=== PATIENT | female | born 1965 | race Caucasian/White ===

== ENCOUNTER 2020-11-16 14:30 | Emergency (ER) | payer BC, SELFPAY ==
[2020-11-16 14:41] VITALS: BP 126/78; PULSE 85; RESP 16; TEMP 37.2; O2SAT 99
--- NOTE | 2020-11-16 14:41 | ED.URI ---
HPI - URI/Sore Throat General Chief Complaint: Upper Respiratory Infection Stated Complaint: cough/chest tightness Source: patient and RN notes reviewed Mode of arrival: ambulatory Limitations: no limitations History of Present Illness HPI Narrative: 55-year-old female with history of asthma presents with concern for continuing cough, chest tightness with deep breathing after recovering from Covid. Reports she is 15 days from the start of her symptoms, reports symptoms had been mild. Denies current fever, shortness of breath, loss of sense of taste or smell, body aches, chills, sweats. Reports she has been taking vitamin supplements, denies any other chin-dbs-[id number] medications. Denies any doing to use her albuterol inhaler. MD elicited complaint: cough Related Data Home Medications Medication Instructions Recorded Confirmed aspirin 81 mg tablet,delayed 81 mg PO DAILY 12/20/19 11/16/20 release cholecalciferol (vitamin D3) 50 2,000 unit PO DAILY 12/20/19 11/16/20 mcg (2,000 unit) capsule clonidine HCl 0.1 mg tablet 0.1 mg PO WEEKLY tablet 12/20/19 11/16/20 Allergies Allergy/AdvReac Type Severity Reaction Status Date / Time codeine AdvReac Intermediate BECOMES Verified 11/16/20 14:47 VERY ANXIOUS ???/ANESTHETIC PRODUCT Allergy Severe PAROXYSMAL Uncoded 11/29/08 15:46 AFIB--CONVERTED ON OWN Review of Systems Review of Systems: Narrative: CONSTITUTIONAL: Denies malaise, chills, sweats, or fever. EYES: Denies visual changes, redness, or discharge. ENT: Denies rhinorrhea, congestion, sinus pain, otalgia and sore throat. CARDIOVASCULAR: Denies chest pain, palpitations, or edema. RESPIRATORY: Reports cough, chest tightness with deep breathing. Denies dyspnea. GASTROINTESTINAL: Denies abdominal pain, nausea, vomiting, diarrhea SKIN: Denies rash or itching. MUSCULOSKELETAL: Denies myalgia. NEUROLOGIC: Denies headache. All systems reviewed & are unremarkable except as noted in HPI and below [facility] Family History Family History (Updated 03/17/18 @ 07:55 by DOCTOR UNKNOWN) Mother Hypertension Family history of atrial fibrillation, Onset Age: 71 Father Family history of malignant neoplasm of testis Other Family history of malignant melanoma Social History Social History Smoking status: Never smoker Alcohol intake: current Comments At time of signature, agree with nursing past medical, surgical, social and family history. There is no relevant family history pertinent to the presenting complaint Exam Narrative: Exam Narrative: GENERAL: Well-appearing, well-nourished, and in no acute distress. HEAD: Normocephalic EYES: PERRLA, conjunctivae clear ENT: Nares clear, turbinates erythematous, clear discharge. Mucous membranes moist. TM pearly agrawal with sharp light reflex bilaterally; no tragal tenderness. Oropharynx not erythematous without lesions. Tonsils not enlarged and without exudate, no drooling, no hoarseness, no trismus, uvula midline. NECK: Supple. No lymphadenopathy CHEST: Clear to auscultation, breath sounds equal. Very mild left inspiratory wheeze, rhonchi, rales, or stridor. No respiratory distress, speaks in full sentences. Aeration good HEART: Regular rate and rhythm. No murmur heard. SKIN: Warm, dry, no rash. NEURO: Alert and oriented x3. PSYCH: Normal mood and affect Course Course Emergency Course: Patient is aware of diagnosis, understands and agrees to treatment plan. Anticipatory guidance given. Patient agrees to follow-up as directed and is aware of reasons to seek care at the emergency department. Portions of this record may have been created with voice recognition software Vital Signs Vital signs: Vital Signs Temperature 98.9 F 11/16/20 14:41 Pulse Rate 85 11/16/20 14:41 Respiratory Rate 16 11/16/20 14:41 Blood Pressure 126/78 11/16/20 14:41 Pulse Oximetry 99 11/16/20 14:41 Temperature 98.9 F 11/16/20 14:41 Pulse Rate 85 01
== END 2020-11-16 15:01 | disposition home or self-care (01) ==
PROVIDERS: Emergency Provider Nurse Practitioner; PCP Family Medicine
DX: J40 Bronchitis, not specified as acute or chronic (principal); Z79.82 Long term (current) use of aspirin
CPT/HCPCS: 99213; G0463

== ENCOUNTER 2021-01-12 01:02 | Day surgery (SDC) | payer BC, SELFPAY ==
[2021-01-03 14:30] VITALS: BMI 22.9
[2021-01-12 07:39] VITALS: BMI 23.7
--- NOTE | 2021-01-12 07:48 | PM.HPGS ---
History of Present Illness History of Present Illness Consent: Risks, benefits, and alternatives have been discussed and questions answered. Patient agrees to proceed with procedure. Chief complaint: neoplasm screening Narrative: Sally Bellamy is a 55 year old female Referred for colon cancer screening Review of Systems Review of Systems: All systems reviewed & are unremarkable except as noted in HPI and below PMFSH Family History Family History (Updated 03/17/18 @ 07:55 by DOCTOR UNKNOWN) Mother Hypertension Family history of atrial fibrillation, Onset Age: 71 Father Family history of malignant neoplasm of testis Other Family history of malignant melanoma Social History Social History Smoking status: Never smoker Alcohol intake: current Drinks per week: 1 Alcohol use details: WINE Substance use: never Substance use type: does not use Living arrangements: with family Spiritual care concerns: No Meds Home Medications and Allergies Home Medications Medication Instructions Recorded Confirmed Type aspirin 81 mg tablet,delayed 81 mg PO HS 12/20/19 01/12/21 History release cholecalciferol (vitamin D3) 50 2,000 unit PO DAILY 12/20/19 01/12/21 History mcg (2,000 unit) capsule fluticasone propion-salmeterol 1 inhalation INHALATION DAILY 01/03/21 01/12/21 History [Advair Diskus] levothyroxine 50 mcg PO QAM 01/03/21 01/12/21 History loratadine [Claritin] 10 mg PO DAILY 01/03/21 01/12/21 History nebivolol [Bystolic] 5 mg PO HS 01/03/21 01/12/21 History Allergies Allergy/AdvReac Type Severity Reaction Status Date / Time No Known Allergies Allergy Verified 01/12/21 07:32 Exam Resp: Auscultation: clear to auscultation bilaterally Cardio: Rate: regular rate Rhythm: regular rhythm GI: GI Palp: Yes Soft to palpation and No Tenderness to palpation present (GI) Assessment and Plan Assessment and plan (1) Colon cancer screening: Code(s): Z12.11 - Encounter for screening for malignant neoplasm of colon Status: Acute Assessment and Plan: Colonoscopy with possible biopsy or polypectomy or cautery or injection of substances.
[2021-01-12] MEDS: LACTATED RINGERS 1,000 ML 150 ML IV CONT (07:50)
[2021-01-12 07:51] VITALS: BP 137/76; PULSE 58; RESP 18; TEMP 36.2; O2SAT 100
--- NOTE | 2021-01-12 08:15 | WPDANESEPPF ---
Anes - Initial Pre Proc Eval Procedure: Operation Date: 01/12/21 09:00 Proposed Procedures p Screening Colonoscopy - Laron Escalona MD Date/Time: 01/12/21 08:15 Surgeon: Laron Escalona MD Pre Op Diagnosis: neoplasm screening Patient Data Age: 55 Gender: F Height: 5 ft 10 in Weight: 75 kg Last Vital Signs Temp 36.2 C L 01/12/21 07:51 Pulse 58 L 01/12/21 07:51 Resp 18 01/12/21 07:51 BP 137/76 01/12/21 07:51 Pulse Ox 100 01/12/21 07:51 Allergies Allergy/AdvReac Type Severity Reaction Status Date / Time No Known Allergies Allergy Verified 01/12/21 07:32 Home Medications Medication Instructions Recorded Confirmed Type aspirin 81 mg tablet,delayed 81 mg PO HS 12/20/19 01/12/21 History release cholecalciferol (vitamin D3) 50 2,000 unit PO DAILY 12/20/19 01/12/21 History mcg (2,000 unit) capsule fluticasone propion-salmeterol 1 inhalation INHALATION DAILY 01/03/21 01/12/21 History [Advair Diskus] levothyroxine 50 mcg PO QAM 01/03/21 01/12/21 History loratadine [Claritin] 10 mg PO DAILY 01/03/21 01/12/21 History nebivolol [Bystolic] 5 mg PO HS 01/03/21 01/12/21 History Patient hx anesthesia problems: post op nausea/vomiting Family hx anesthesia problems: none PMFSH Past Medical History Medical History Asthma Essential (primary) hypertension Hypothyroidism, unspecified Mixed hyperlipidemia Family History Family History Mother Hypertension Family history of atrial fibrillation, Onset Age: 71 Father Family history of malignant neoplasm of testis Other Family history of malignant melanoma Social History Social History Smoking status: Never smoker Alcohol intake: current Drinks per week: 1 Alcohol use details: WINE Substance use: never Substance use type: does not use Living arrangements: with family Spiritual care concerns: No Anes - Eval Final PreProcedure Day of Procedure 01/12/21 08:15 Patient weight: normal Heart: regular rate and rhythm Lungs: clear to auscultation Airway: Mallampati scale class II Neurological: alert and oriented ASA classification: II Emergent: no Anesthetic plan: proceed Anesthesia type and monitoring: general GIVS and standard monitoring Informed Consent: The patient's anesthetic plan and its attendant risks and benefits were discussed with the patient/family/POA. Questions were solicited and answers provided to the satisfaction of the patient/family/POA.
[2021-01-12 08:59] VITALS: BP 106/66; PULSE 59; RESP 18; O2SAT 99
[2021-01-12 09:09] VITALS: BP 108/65; PULSE 55; RESP 17; O2SAT 100
[2021-01-12 09:19] VITALS: BP 129/71; PULSE 54; RESP 17; O2SAT 100
== END 2021-01-12 09:28 | disposition home or self-care (01) ==
PROVIDERS: PCP Family Medicine; Visit Provider Internal Medicine Gastroenterology
PROC: 0DJD8ZZ Inspection of Lower Intestinal Tract, Via Natural or Artificial Opening Endoscopic (ICD-10-PCS; CPT 45378; principal; 2021-01-12 09:00)
DX: Z12.11 Encounter for screening for malignant neoplasm of colon (principal); Z86.010 Personal history of colon polyps
CPT/HCPCS: 45378; J2001; J2704; J7120

== ENCOUNTER → 2021-08-23 11:50 | Outpatient (CLI) | payer BC, SELFPAY ==
--- NOTE | ~2021-08-23 | XR_ITS ---
EXAMINATION:XR cervical spine 4-5V DATE: 08/23/2021 12:06 INDICATION: Neck pain TECHNIQUE: AP, lateral, lateral swimmers and odontoid views of the cervical spine are provided. COMPARISON: None FINDINGS: There are 2 mm of anterolisthesis of C3 on C4. The odontoid is intact. No fracture is ident ified. The vertebral body heights are maintained. There is moderate loss of intervertebral disc space height at C5-6 and mild loss of disc space height at C6-7. Small degenerative osteophytes project fr om the anterior endplates of multiple vertebral bodies. There is moderate to severe facet osteoarthri tis on the left in the mid cervical spine. There is mild uncovertebral joint osteoarthritis at C5-6. Prevertebral soft tissues are normal. IMPRESSION: 1. Moderate cervical spondylosis without acute findings. Reviewed, dictated and finalized at location A.
== END ==
PROVIDERS: PCP Physician Assistant Medical; Visit Provider Physician Assistant Medical
DX: M47.812 Spondylosis without myelopathy or radiculopathy, cervical region (principal)
CPT/HCPCS: 72050

== ENCOUNTER 2021-10-25 14:15 | Outpatient (RCR) | payer BC, SELFPAY ==
--- NOTE | 2021-09-05 12:46 | PTOPEVAL ---
Thank you for referring Sally Bellamy to [facility].? The patient is scheduled to be seen for therapy 2x/week for 6 weeks. Please review, sign, date and return this plan of care TREE. I agree with and certify that the following plan of care is medically necessary. Referring Physician Date Attending Provider: Dontrell Villalpando, GREYS[place] Diagnosis cervical radiculopathy Onset 2018 Additional Evaluation Detail She has started on steroid and 600 mg ibuprofen and pain patch for her pain. Subjective Information She was received massages Query Text:As Reported By Patient/ every 2 wks for 2 yrs to Family manage her neck pain, but no therapy services. 1 Month ago her right side of neck had increased pain. She c /o numbness, tingling, pinching and tightness of neck region. She reports the computer position makes a difference on her neck pain with reading. She has increased pain with looking update. She is limited with neck motion for driving and turning when seated position. Denies performing any HEP for neck. Fitness program of walking and light resistance training. She has increased pain with sitting. Diagnostic Tests X-Rays For This Problem Yes: Moderate cervical spondylosis Pain Assessment Self Report Pain Assessment Right Neck Reported Pain Level 4 Pain Description Burning,Numbness,Radiating, Tightness,Tingling Pain Frequency Continuous Lowest Pain Intensity 3 Greatest Pain Intensity 7 Pain Aggravating Factors Exercise/Activity Cervical and Lumbar ROM Cervical ROM Cervical Flexion (0-60) 55:Active in Degrees Cervical Extension (0-70) 55:Active in Degrees Cervical Lateral Flexion Right (0-50) 20:Active in Degrees Cervical Lateral Flexion Left (0-50) 15:Active in Degrees Cervical Rotation Right (0-90) 43Active in Degrees Cervical Rotation Left (0-90) 48:Active in Degrees Cervical ROM Comments dizziness with ext pain and tightness noted with neck motions Upper Extremity Range of Motion Genera
--- NOTE | 2021-10-05 15:56 | PTOPEVAL ---
Physical therapy progress note Thank you for referring Sally Bellamy to [facility].? See summary below for Sally's progress with therapy. The patient is scheduled to be seen for therapy? 2 x/week for 3 weeks. Please review, sign, date and return this plan of care TREE. I agree with and certify that the following plan of care is medically necessary. Referring Physician Date Attending Provider: Dontrell Villalpando PA-C Problem Diagnosis cervical radiculopathy Onset 2018 Additional Evaluation Detail She has started on steroid and 600 mg ibuprofen and pain patch for her pain. Subjective Information She reports improved neck Query Text:As Reported By Patient/ motion and pain as a result of Family therapy. She is having difficulty with scapular strengthening ex. Denied any numbness, tingling of neck or UE region. Cont to have pinching of neck region. She she is able to turn her head better with driving. She is more aware of her UE position with daily task and seated position. Pain Assessment Self Report Pain Assessment Right Neck Reported Pain Level 0 Pain Description Burning,Pinching,Tightness Pain Frequency Intermittent Greatest Pain Intensity 4 Cervical and Lumbar ROM Cervical ROM Cervical Flexion (0-60) 55:Active in Degrees Cervical Extension (0-70) 70:Active in Degrees Cervical Lateral Flexion Right (0-50) 18Active in Degrees Cervical Lateral Flexion Left (0-50) 25:Active in Degrees Cervical Rotation Right (0-90) 55:Active in Degrees Cervical Rotation Left (0-90) 55:Active in Degrees Cervical ROM Comments dizziness with ext pain and tightness noted with neck motions Upper Extremity Muscle Strength Testing General Upper Extremity Strength Gross Upper Extremity Strength Comments lary middle trap 3/5 with proper middle/lower trap stability Palpation Assessment Palpation Palpation moderate tightness with tenderness of lary SCM, lary scalene posterior, lary upper/ middle trap, right cerivcal paraspinals and suboccipital muscles > left, no tenderness or tightness of right serratus post sup. PT Clinical Fields
--- NOTE | 2021-10-25 15:33 | PTOPEVAL ---
Physical Therapy Discharge Summary Thank you for referring Sally Bellamy to [facility].? Sally has attended 12 therapy visits to address her neck limitations. She demonstrates improved pain, improved ROM and strength. She performs her HEP indep. She has reached maximal potential with skilled therapy services at this time. Will DC skilled PT services at this time. Please review, sign, date and return this discharge summary TREE. I agree with and certify that the following plan of care is medically necessary. Referring Physician Date Attending Provider: Dontrell Villalpando PA-C Diagnosis cervical radiculopathy Onset 2018 Subjective Information She is no longer using the Query Text:As Reported By Patient/ pain patch or medication for Family her pain. She reports improved neck motion and pain as a result of therapy. She feels her work increases her symptoms. She has no pain on the weekend. She did feel the tape helped her be more aware of her posture and movement. She is more aware of her shoulder/scap position with activities and exercises. Feels the changes in her exercises have helped improved her movement and tolerance. Pain Assessment Right Neck Reported Pain Level 1 Lowest Pain Intensity 1 Greatest Pain Intensity 2 Cervical and Lumbar ROM Cervical ROM Cervical Flexion (0-60) 55:Active in Degrees Cervical Extension (0-70) 70:Active in Degrees Cervical Lateral Flexion Right (0-50) 32:Active in Degrees Cervical Lateral Flexion Left (0-50) 30:Active in Degrees Cervical Rotation Right (0-90) 58:Active in Degrees Cervical Rotation Left (0-90) 58:Active in Degrees Cervical ROM Comments no pain with neck motion, but tightness Upper Extremity Muscle Strength Testing General Upper Extremity Strength Gross Upper Extremity Strength Comments lary middle trap 3+/5 with proper middle/lower trap stability PT Clinical Summary Pt referred to therapy due to increased neck pain and symptoms on right side. She has a history of neck muscle tightness for 2 yrs. She has attended 12 therapy visits from 09/05/21 to 10/25/21. As result of skilled therapy services s
== END 2021-10-29 11:20 | disposition home or self-care (01) ==
LOC: ANHPT 14:15
PROVIDERS: PCP Physician Assistant Medical; Visit Provider Physician Assistant Medical
DX: M54.12 Radiculopathy, cervical region (principal)
CPT/HCPCS: 20560; 97014; 97110; 97140; 97162; G0283

== ENCOUNTER 2023-05-07 15:30 | Outpatient (RCR) | payer BC, SELFPAY ==
--- NOTE | 2023-04-07 16:38 | OPREHPOC ---
Outpatient Therapy Plan of Care This is a Multidisciplinary Plan of Care that may contain components documented by all disciplines (PT, OT, and ST.) PT Problem 1 PT Problem #1 Knowledge Deficit PT Goal 1 Goal Pt to be IND with issued HEP. Target Visit 8 PT Problem 2 PT Problem #2 Pain PT Goal 1 Goal Pt to report hip pain no greater than 3/10 in the last week. Target Visit 8 PT Goal 2 Goal Pt to report being able to jog for 5 mins without an increase in hip pain Target Visit 8 Progress Met PT Problem 3 PT Problem #3 Impaired Range of Motion PT Goal 1 Goal Pt to report no increase in pain with passive hip ROM Target Visit 8 Progress Met PT Goal 2 Goal Pt to demonstrate 20 deg of hip int. rot. and 40 deg of hip ext. rot Target Visit 8 PT Problem 4 PT Problem #4 Impaired Strength PT Goal 1 Goal Pt to demonstrate L hip strength equal to R hip strength Target Visit 8 PT Goal 2 Goal Pt to be able to lift and carry 30lb without an increase in symptoms Target Visit 8 Progress Met
--- NOTE | 2023-04-07 16:38 | PTOPEVAL1 ---
Assessment and note entered by Azra Corley, PT, DPT Evaluation Information Assessment Status Evaluation Diagnosis L thigh/hip pain Onset 1 year Subjective Information Pt report hip pain for the last year that is a dull ache. Pt states any time she does sit ups her hip would pop. She states it got to where her hip would pop during position changes, sit to stand, getting in and out of the car, or striding for too long. She used to run fairly often but has not done this for the last year or so. She states she feels like she has lost a lot of mobility recently , she is unsure if her hip is the cause or not. She will get a sharp, catching pain that is really quick. Reported Pain Level Pain Score 1: Self Report Assessment PT Clinical Summary Sally presents to therapy today for her initial evaluation with a diagnosis of L groin pain. Today she demonstrates significantly decreased L hip passive ROM in all directions that is limited by pain and a hard firm end feel. She demonstrates good pain in her L hip but it is decreased compared to her R hip. She ambulates with gait deviations including decreased hip extension on the L and increased anterior pelvic motion on the R. Skilled physical therapy services are indicated to address the deficits noted above, to manage pain, and to return to PLOF. Plan of Care Interventions Electrical Stimulation,Gait Training,Hot Pack/Cold Pack,Manual Therapy,Neuro Re-education,Patient/ Caregiver Educati,Therapeutic Activities, Therapeutic Exercise PT Services Indicated Yes Treatment Frequency and 2x/wk for 4 wks Duration These treatments will address the objective and functional deficits as defined above. The patient will be advanced safely and appropriately in order for the patient to progress towards his/her prior level of function. Additional exercises will be introduced and as well as a comprehensive home exercise program upon discharge, if needed, ?to ensure carryover of functional gains achieved in the clinic. This treatment plan has been reviewed and agreement upon by the patient.
--- NOTE | 2023-04-22 16:34 | PCPTNOTE ---
On 04/22/23, the student, Hiowt Balderas, provided care and completed [facility] documentation on this patient. I have reviewed the student's documentation and agree with the findings.
--- NOTE | 2023-05-07 16:31 | PTOPDC ---
Assessment and note entered by Azra Corley, PT, DPT Evaluation Information Assessment Status Discharge Diagnosis L thigh/hip pain Onset 1 year Subjective Information Pt reports she does not thinks the exercises are working for what her problem is. Reported Pain Level Pain Score 2: Self Report Assessment PT Clinical Summary Sally presents to therapy today for her progress report following 7 treatments of skilled therapy to treat her diagnosis of L groin pain. Today she demonstrates minimal improvements in her hip rotation ROM, minimal improvements in her strength , and no improvements in her pain reports. D/t poor therapy progress despite excellent compliance with her HEP she will be discharged from skilled therapy services at this time with instructions to follow up with her referring provider and possible ortho.
== END 2023-05-08 08:17 | disposition home or self-care (01) ==
LOC: ANHGOSHPT 15:30
PROVIDERS: PCP Family Medicine; Visit Provider Family Medicine
DX: S76.212D Strain of adductor muscle, fascia and tendon of left thigh, subsequent encounter (principal)
CPT/HCPCS: 97014; 97110; 97112; 97140; 97161; 97530; G0283

== ENCOUNTER 2023-05-26 06:39 | Outpatient (CLI) | payer BC, SELFPAY ==
--- NOTE | ~2023-05-26 | XR_ITS ---
XR hip LT 2V w AP pelvis 05/26/2023 07:03 Indication: Left hip pain Procedure: 3 views left hip including AP pelvis Comparison: No prior studies for comparison. Findings: There is moderate osteoarthritis of the hips, left greater than right. Pelvic rings are int act. No significant soft tissue abnormality. No foreign bodies. No acute fracture or traumatic malali gnment. Impression: 1: Moderate osteoarthritis of the hips. Reviewed, dictated and finalized at location A. Impression: 1: Moderate osteoarthritis of the hips.
== END 2023-05-26 06:40 | disposition home or self-care (01) ==
LOC: ANHIMG 06:42
PROVIDERS: PCP Family Medicine; Visit Provider Family Medicine
DX: M16.0 Bilateral primary osteoarthritis of hip (principal)
CPT/HCPCS: 73502

== ENCOUNTER 2023-12-07 17:06 | Emergency (ER) | payer BC, SELFPAY ==
--- NOTE | ~2023-12-07 | XR_ITS ---
EXAMINATION: XR chest 2V Exam Date/Time: 12/07/2023 18:20 COMPRESSOR OPERATOR PORTABLE HISTORY: SOB, IRREGULAR HEART RATE Comparison: 05/31/2016; CT chest 09/09/2017. RESULT: Lines, tubes, and devices: None. Lungs and pleura: Clear. Biapical pleural scarring. Cardiomediastinal silhouette: Stable. Granulomatous calcifications. Other: No acute osseous or upper abdominal finding. IMPRESSION: No acute cardiopulmonary process. Reviewed, dictated and finalized at location K. RESSOR OPERATOR PORTABLE
--- NOTE | 2023-12-07 17:10 | ECG_ITS ---
Measurements Intervals [place] Rate: 103 P: VT: 0 QRS: 66 QRSD: 82 T: 47 QT: 340 QTc: 447 Interpretive Statements ATRIAL FIBRILLATION WITH RAPID VENTRICULAR RESPONSE NONSPECIFIC ST SEGMENT ABNORMALITY ABNORMAL ECG NO PREVIOUS ECG AVAILABLE FOR COMPARISON Electronically Signed On 12-08-2023 7:42:39 TRANSISTOR TESTER by Chandler Childers M.D.
[2023-12-07 17:13] VITALS: BP 148/96; PULSE 105; RESP 18; TEMP 36.5; O2SAT 100
[2023-12-07 17:55] LABS: Basophils Percent Auto 0.6 % (0.2-1.2); Eosinophils Absolute Auto 0.1 K/mm3 (0-0.3); Eosinophils Percent Auto 2.1 % (0-4.4); Hematocrit 41.2 % (37.0-47.0); Hemoglobin 13.3 g/dL (12.0-15.0); Immature Granulocyte Absolute 0.02 K/mm3 (0.00-0.031); Immature Granulocyte Percent A 0.3 % (0-0.5); Lymphocytes Absolute Auto 2.23 K/mm3 (0.9-3.2); Lymphocytes Percent Auto 35.7 % (18.3-44.2); Mean Corpuscular HGB Conc 32.3 g/dl (32-36); Mean Corpuscular Volume 92.8 fl (80-100); Mean Platelet Volume 8.8 fl (7.4-10.4); Monocytes Absolute Auto 0.5 K/mm3 (0.1-0.6); Monocytes Percent Auto 8.5 % (2.6-8.5); Neutrophils Absolute Auto 3.3 K/mm3 (1.3-6.7); Neutrophils Percent Auto 52.8 % (45.5-73.1); Platelet Count Result 318 k/mm3 (150-375); Red Blood Count 4.44 M/mm3 (4.2-5.4); Red Cell Distribution Width 12.8 % (11.5-14.5); White Blood Count 6.3 K/mm3 (4.5-10.0)
[2023-12-07 18:03] LABS: Alanine Aminotransferase 24 U/L (6-35); Albumin Level 4.1 g/dL (3.5-5.1); Alkaline Phosphatase 62 U/L (38-126); Anion Gap 6 mmol/L (8-16); Aspartate Amino Transferase 31 U/L (14-36); Bilirubin,Total 0.5 mg/dL (0.2-1.3); Blood Urea Nitrogen 20 mg/dL (7-17); Carbon Dioxide 28 mmol/L (22-30); Chloride 106 mmol/L (98-107); Estimated CRCL calculation 93 ml/min; Estimated Glomerular Filt Rate > 60; Glucose 112 mg/dL (65-110); Lipase 121 U/L (23-300); Potassium 4.1 mmol/L (3.4-5.0); Sodium 140 mmol/L (137-145)
[2023-12-07 18:06] LABS: Partial Thromboplastin Time 29.6 SECONDS (22.3-36.8)
[2023-12-07 18:15] LABS: Troponin I < 0.012 ng/mL (0.000-0.034)
[2023-12-07 20:39] VITALS: PULSE 106
--- NOTE | 2023-12-07 20:39 | ED.CHESTPAIN ---
HPI - Chest Pain General Chief Complaint: Chest Pain Stated Complaint: irregular heartbeat Time Seen by Provider: 12/07/23 20:32 History of Present Illness HPI narrative: Patient is a 58-year-old female with history of hypothyroidism, HTN here with palpitations. patient notes that she has had intermittent episodes over the last couple of days, today's episode began around 4:00 pm. She notes that she feels a fluttering sensation in the left side of her chest. No associated shortness of breath, chest pain, lightheadedness. She notes that her heart rate on her watch went up to 115, typically her resting heart rate is in the 50s. This prompted her to tell her about the symptoms she has been having and he recommended she come into the emergency department for evaluation. She does note that after a procedure several years ago she did have an arrhythmia when she was coming out of anesthesia which resolved with medication then and never really was noted to recur. She has never seen a ginseng farmer. No history of CAD or stroke. No recent illnesses. No lower extremity swelling, no prior history of PE or DVT, no recent travel. No blood thinner use. Related Data Home Medications Medication Instructions Recorded Confirmed aspirin 81 mg tablet,delayed 81 mg PO HS 12/20/19 06/09/23 release (Adult Aspirin Regimen) cholecalciferol (vitamin D3) 50 2,000 unit PO DAILY 12/20/19 06/09/23 mcg (2,000 unit) capsule loratadine 10 mg tablet (Claritin) 10 mg PO DAILY 01/03/21 06/09/23 ascorbic acid (vitamin C) 500 mg mg PO 06/09/23 06/09/23 capsule magnesium glycinate 100 mg tablet 400 mg PO DAILY 06/09/23 06/09/23 omega-3 fatty acids 500 mg capsule 500 mg PO DAILY 06/09/23 06/09/23 quercetin 500 mg capsule mg PO 06/09/23 06/09/23 vitamin B complex (B 1 tablet PO DAILY 06/09/23 06/09/23 Complex-Vitamin B12 tablet) zinc gluconate 50 mg tablet 50 mg PO BID 06/09/23 06/09/23 Allergies Allergy/AdvReac Type Severity Reaction Status Date / Time codeine AdvReac Unknown feels Verified 12/07/23 20:44 jittery COUNT INCLUDES THE [facility] Past Medical History Medical History Amaurosis fugax Asthma 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 Essential (primary) hypertension Hypothyroidism, unspecified Mixed hyperlipidemia Normal colonoscopy 3.10.23/ hx colon polyps/ repeat in 5 years Thrombosed external hemorrhoid Umbilical hernia with obstruction Surgical History Surgical History History of hysterectomy Family History Family History Mother Hypertension Family history of atrial fibrillation, Onset Age: 71 Father Family history of malignant neoplasm of testis Other Family history of malignant melanoma Social History Social History Smoking status: Never smoker Alcohol intake: current Drinks per week: 1 Alcohol use details: WINE Substance use: never Substance use type: does not use Lack of Transportation: No Lack of Food: Never True Current Housing: I Have Housing Concerned About Future Housing: No Difficulty Paying Gas/Electric Bills: No Difficulty Paying for Meds: No Currently Unemployed: No Education: Master's Degree or Higher Difficulty w/ Childcare or Family Care: No Living arrangements: with family Occupation/Education: occupation 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 Course Course Emergency Course: Chart review performed. Patient here for irregular heart beat. She has been checking it at home and has seen heart rate up to 115 at home. No chest pain or shortness of breath. Triage vitals show HTN, mild tachycardia. Chest pain protocol reviewed. CBC within normal limits. CMP within normal limits. Initia
[2023-12-07 20:46] VITALS: BP 123/91; PULSE 111; RESP 20; O2SAT 100
[2023-12-07 21:02] LABS: Troponin I < 0.012 ng/mL (0.000-0.034)
[2023-12-07 21:04] VITALS: PULSE 105
[2023-12-07] MEDS: METOPROLOL TARTRATE INJ 5 MG/5 ML VIAL IV PUSH (21:04)
[2023-12-07 21:15] LABS: Magnesium 2.1 mg/dL (1.6-2.3)
[2023-12-07 22:38] VITALS: PULSE 89
[2023-12-07] MEDS: APIXABAN 5 MG TABLET PO (22:38)
[2023-12-07] MEDS: METOPROLOL SUCCINATE EXT REL 25 MG TABCR PO (22:38)
[2023-12-07 22:46] VITALS: BP 131/84; PULSE 88; RESP 13; O2SAT 99
== END 2023-12-07 22:46 | disposition home or self-care (01) ==
PROVIDERS: Emergency Medicine; Emergency Provider Student in an Organized Health Care Education/Training Program; PCP Family Medicine
DX: I48.91 Unspecified atrial fibrillation (principal); I10 Essential (primary) hypertension; E03.9 Hypothyroidism, unspecified; J45.909 Unspecified asthma, uncomplicated; E78.2 Mixed hyperlipidemia; Z90.710 Acquired absence of both cervix and uterus; Z79.82 Long term (current) use of aspirin; R94.31 Abnormal electrocardiogram [ECG] [EKG]
CPT/HCPCS: 36415; 71046; 80053; 83690; 83735; 84443; 84484; 85025; 85610; 85730; 93005; 96374; 99284; A9270

== ENCOUNTER 2023-12-12 15:24 | Emergency (ER) | payer BC, SELFPAY ==
[2023-12-12] VITALS (13 sets, daily range): BP systolic 132–173; BP diastolic 67–80; PULSE 60–75; RESP 13–22; TEMP 36.7; O2SAT 97–100
--- NOTE | 2023-12-12 15:55 | ECG_ITS ---
Measurements Intervals [place] Rate: 61 P: 62 VT: 168 QRS: 40 QRSD: 93 T: 55 QT: 419 QTc: 423 Interpretive Statements SINUS RHYTHM POSSIBLE LEFT ATRIAL ENLARGEMENT [-0.1mV P WAVE IN V1/V2] POSSIBLE RIGHT VENTRICULAR CONDUCTION DELAY [RSR (QR) IN V1/V2] ABNORMAL ECG COMPARED TO ECG 12/07/2023 17:12:33 SINUS RHYTHM NOW PRESENT Electronically Signed On 12-13-2023 8:00:40 ELECTRICAL APPLIANCE SERVICER by Rafat Santizo M.D.
[2023-12-12 16:12] LABS: Basophils Percent Auto 0.7 % (0.2-1.2); Eosinophils Absolute Auto 0.1 K/mm3 (0-0.3); Eosinophils Percent Auto 1.1 % (0-4.4); Hemoglobin 13.9 g/dL (12.0-15.0); Immature Granulocyte Absolute 0.01 K/mm3 (0.00-0.031); Immature Granulocyte Percent A 0.2 % (0-0.5); Lymphocytes Absolute Auto 1.35 K/mm3 (0.9-3.2); Lymphocytes Percent Auto 24.4 % (18.3-44.2); Mean Corpuscular HGB Conc 32.3 g/dl (32-36); Mean Corpuscular Hemoglobin 29.8 pg (26-34); Mean Corpuscular Volume 92.3 fl (80-100); Mean Platelet Volume 8.5 fl (7.4-10.4); Monocytes Absolute Auto 0.3 K/mm3 (0.1-0.6); Neutrophils Absolute Auto 3.8 K/mm3 (1.3-6.7); Neutrophils Percent Auto 67.6 % (45.5-73.1); Platelet Count Result 312 k/mm3 (150-375); Red Blood Count 4.66 M/mm3 (4.2-5.4); Red Cell Distribution Width 12.9 % (11.5-14.5); White Blood Count 5.5 K/mm3 (4.5-10.0)
[2023-12-12 16:21] LABS: Alanine Aminotransferase 30 U/L (6-35); Albumin Level 4.8 g/dL (3.5-5.1); Alkaline Phosphatase 67 U/L (38-126); Anion Gap 8 mmol/L (8-16); Aspartate Amino Transferase 37 U/L (14-36); Blood Urea Nitrogen 15 mg/dL (7-17); Calcium 9.8 mg/dL (8.4-10.2); Carbon Dioxide 28 mmol/L (22-30); Chloride 102 mmol/L (98-107); Estimated CRCL calculation 109 ml/min; Estimated Glomerular Filt Rate > 60; Glucose 113 mg/dL (65-110); Potassium 4.2 mmol/L (3.4-5.0); Sodium 138 mmol/L (137-145)
[2023-12-12 16:33] LABS: Troponin I < 0.012 ng/mL (0.000-0.034)
--- NOTE | 2023-12-12 18:51 | ECG_ITS ---
Measurements Intervals [place] Rate: 59 P: 64 NE: 169 QRS: 48 QRSD: 83 T: 56 QT: 432 QTc: 430 Interpretive Statements SINUS BRADYCARDIA OTHERWISE NORMAL ECG COMPARED TO ECG 12/12/2023 16:01:07 SINUS BRADYCARDIA NOW PRESENT Electronically Signed On 12-13-2023 8:02:44 LOCOMOTIVE OBSERVER by Rafat Santizo M.D.
--- NOTE | 2023-12-12 18:51 | ED.RECABL ---
HPI - Recheck/Abnormal Lab/Rx General Chief Complaint: Recheck/Abnormal Lab/Rx Stated Complaint: Elv BP Time Seen by Provider: 12/12/23 16:58 Source: patient Mode of arrival: ambulatory Limitations: no limitations History of Present Illness HPI narrative: Patient is a 58-year-old female who presents to the ED with report of hypertension. Patient reports she was seen in the ED here last Friday for new medication. She was discharged at that time, started on eliquis and metoprolol, which she reports compliance with. States today around 1:00 p.m. she began having a squeezing pain in her left upper arm. She checked her blood pressure at that time and noted to be slightly elevated at 140 systolic. She then checked her blood pressure several more times and noted to increase to 160 systolic. She then decided to come to the ED. States the symptoms have since resolved. No further pain, tightness, pressure currently. Denies difficulty breathing, denies abdominal pain, nausea, vomiting, dizziness, lightheadedness, headache, vision changes, BLE pain or swelling. Patient is scheduled to see Cardiology with [facility] within the next 2 weeks. Scheduled to receive ECHO next week as outpatient. Related Data Home Medications Medication Instructions Recorded Confirmed aspirin 81 mg tablet,delayed 81 mg PO HS 12/20/19 12/09/23 release (Adult Aspirin Regimen) cholecalciferol (vitamin D3) 50 2,000 unit PO DAILY 12/20/19 12/09/23 mcg (2,000 unit) capsule loratadine 10 mg tablet (Claritin) 10 mg PO DAILY 01/03/21 12/09/23 ascorbic acid (vitamin C) 500 mg mg PO 06/09/23 12/09/23 capsule magnesium glycinate 100 mg tablet 400 mg PO DAILY 06/09/23 12/09/23 omega-3 fatty acids 500 mg capsule 500 mg PO DAILY 06/09/23 12/09/23 quercetin 500 mg capsule mg PO 06/09/23 12/09/23 vitamin B complex (B 1 tablet PO DAILY 06/09/23 12/09/23 Complex-Vitamin B12 tablet) zinc gluconate 50 mg tablet 50 mg PO BID 06/09/23 12/09/23 Allergies Allergy/AdvReac Type Severity Reaction Status Date / Time codeine AdvReac Unknown feels Verified 12/09/23 12:55 jittery Review of Systems Review of Systems: CONSTITUTIONAL: Denies fever, chills, or sweats. ENT: Denies vision changes. CARDIOVASCULAR: See HPI. RESPIRATORY: Denies cough or dyspnea. GASTROINTESTINAL: Denies abdominal pain, nausea, vomiting MUSCULOSKELETAL: See HPI. NEUROLOGIC: Denies headache, dizziness, numbness, or weakness. 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 Essential (primary) hypertension Hypothyroidism, unspecified Mixed hyperlipidemia Normal colonoscopy 3/ hx colon polyps/ repeat in 5 years Thrombosed external hemorrhoid Umbilical hernia with obstruction Surgical History Surgical History History of hysterectomy Family History Family History Mother Hypertension Family history of atrial fibrillation, Onset Age: 71 Father Family history of malignant neoplasm of testis Other Family history of malignant melanoma Social History Social History Smoking status: Never smoker Alcohol intake: current Drinks per week: 1 Alcohol use details: WINE Substance use: never Substance use type: does not use Lack of Transportation: No Lack of Food: Never True Current Housing: I Have Housing Concerned About Future Housing: No Difficulty Paying Gas/Electric Bills: No Difficulty Paying for Meds: No Currently Unemployed: No Education: Master's Degree or Higher Difficulty w/ Childcare or Family Care: No Living arrangements: with [facility]
[2023-12-12 19:25] LABS: Magnesium 2.3 mg/dL (1.6-2.3)
[2023-12-12 19:38] LABS: Troponin I < 0.012 ng/mL (0.000-0.034)
== END 2023-12-12 20:47 | disposition home or self-care (01) ==
PROVIDERS: Emergency Medicine; Emergency Provider Physician Assistant; PCP Family Medicine
DX: M79.622 Pain in left upper arm (principal); I10 Essential (primary) hypertension; J45.909 Unspecified asthma, uncomplicated; E03.9 Hypothyroidism, unspecified; E78.2 Mixed hyperlipidemia; Z90.710 Acquired absence of both cervix and uterus; R94.31 Abnormal electrocardiogram [ECG] [EKG]; R00.1 Bradycardia, unspecified
CPT/HCPCS: 36415; 80053; 83735; 84484; 85025; 93005; 99284

== ENCOUNTER 2023-12-17 10:25 | Outpatient (CLI) | payer BC, SELFPAY ==
--- NOTE | 2023-12-17 10:30 | ECHO_ITS ---
Patient Info Name: Sally Bellamy Age: 58 years : 1965 Gender: Female Ht: 70 in Wt: 177 lbs BSA: 2.00 m2 HR: 71 bpm BP: 132 / 76 mmHg Heart Rhythm: Sinus Rhythm Technical Quality: Good Exam Date: 12/17/2023 11:09 AM Exam Location: Echo Lab Patient Status: Outpatient Admit Date: 12/17/2023 Staff Ordering Physician: Guanaco Macias PA-C Site Foreman: Attending Provider: Guanaco Macias PA-C Exam Type: CA echo doppler color flow Study Info Complete two-dimensional, color flow and Doppler transthoracic echocardiogram is performed. Summary 1. Complete two-dimensional, color flow and Doppler transthoracic echocardiogram is performed. 2. Left ventricular chamber dimension is normal. 3. Left ventricular systolic function is normal, estimated at 60-65%. 4. There is mildly increased left ventricular wall thickness. 5. The left ventricular diastolic function is normal. 6. There is mild pulmonic regurgitation. Left Ventricle Left ventricular chamber dimension is normal. Left ventricular systolic function is normal, estimated at 60-65%. There is mildly increased left ventricular wall thickness. The left ventricular diastolic function is normal. Right Ventricle Right ventricular chamber dimension is normal. Right ventricular systolic function is normal. Left Atria Left atrial chamber dimension is normal. Right Atria Right atrial chamber dimension is normal. Atrial Septum Intact interatrial septum visualized by color flow imaging. Aortic Valve The aortic valve is trileaflet. There is mild aortic valve sclerosis. There is no aortic valve stenosis. There is trace aortic valve regurgitation. Pulmonic Valve The pulmonic valve is normal. There is no pulmonic valve stenosis. There is mild pulmonic regurgitation. Mitral Valve The mitral valve has thickened leaflets. There is no mitral valve stenosis. There is trace mitral valve regurgitation. Tricuspid Valve The tricuspid valve leaflets are normal. There is no significant tricuspid valve stenosis. There is trace tricuspid valve regurgitation. Pericardium/Pleural The pericardium appears normal. There is no pericardial effusion. Inferior Vena Cava Normal inferior vena cava with <50% collapse upon inspiration consistent with elevated right atrial pressure, 10 mmHg. Aorta The aortic root size at the sinus of Valsalva is normal. Left Ventricular Outflow Tract Name Value Normal LVOT 2D LVOT Diameter 2.1 cm LVOT Doppler LVOT Peak Gradient 6 mmHg LVOT Mean Gradient 2 mmHg LVOT VTI 27 cm LVOT VTI/AV VTI Ratio 0.8 LVOT Stroke Volume 90 ml LVOT CO 5.4 l/min LVOT CI 2.7 l/min/m2 Pulmonic Valve Name Value Normal PV Doppler PV Peak Gradient 4 mmHg Chao
== END 2023-12-17 10:26 | disposition home or self-care (01) ==
PROVIDERS: PCP Family Medicine; Visit Provider Physician Assistant
DX: I51.7 Cardiomegaly (principal); I37.1 Nonrheumatic pulmonary valve insufficiency
CPT/HCPCS: 93306

== ENCOUNTER 2024-01-23 08:28 | Outpatient (CLI) | payer BC, SELFPAY ==
--- NOTE | 2024-02-04 12:33 | WPDHOMESLEEP ---
Sleep Study - Home Unattended Date of Study: 01/23/24 Ordering Provider: Shaina Fischer MD Interpreting Provider: Ceci Stewart DO Home Sleep Study Type: Watch PAT Height: 1.78 m Weight: 77.111 kg Body Mass Index: 24.3 Neck Circumference (inches): 13.25 [place]: 0 Reason for Sleep Study Evaluation for causes of atrial fibrillation Sleep History The patient is a 58-year-old female with asthma, hypertension, hypothyroidism, hyperlipidemia and atrial fibrillation that had a sleep study ordered by her primary care physician for evaluation of sleep apnea. The patient's sleep intake questionnaire packet was unavailable. 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 Essential (primary) hypertension Hypothyroidism, unspecified Left hip pain Mixed hyperlipidemia Normal colonoscopy 3.10.23/ hx colon polyps/ repeat in 5 years Strain of left groin Thrombosed external hemorrhoid Umbilical hernia with obstruction Surgical History Surgical History History of hysterectomy Family History Family History Mother Hypertension Family history of atrial fibrillation, Onset Age: 71 Father Family history of malignant neoplasm of testis Other Family history of malignant melanoma Social History Social History Smoking status: Never smoker Alcohol intake: current Drinks per week: 1 Alcohol use details: WINE Substance use: never Substance use type: does not use Lack of Transportation: No Lack of Food: Never True Current Housing: I Have Housing Concerned About Future Housing: No Difficulty Paying Gas/Electric Bills: No Difficulty Paying for Meds: No Currently Unemployed: No Education: Master's Degree or Higher Difficulty w/ Childcare or Family Care: No Living arrangements: with family Occupation/Education: occupation 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 Medications Home Medications Medication Instructions Recorded Confirmed Type cholecalciferol (vitamin D3) 50 2,000 unit PO DAILY 12/20/19 01/13/24 History mcg (2,000 unit) capsule loratadine 10 mg tablet (Claritin) 10 mg PO DAILY 01/03/21 01/13/24 History fluticasone 250 mcg-salmeterol 50 See Rx Instructions .Route 11/25/22 01/13/24 Rx mcg/dose blistr powdr for .COMPLEX #180 ea inhalation ([employer] Inhub) ascorbic acid (vitamin C) 500 mg mg PO 06/09/23 01/13/24 History capsule magnesium glycinate 100 mg tablet 400 mg PO DAILY 06/09/23 01/13/24 History omega-3 fatty acids 500 mg capsule 500 mg PO DAILY 06/09/23 01/13/24 History quercetin 500 mg capsule mg PO 06/09/23 01/13/24 History vitamin B complex (B 1 tablet PO DAILY 06/09/23 01/13/24 History Complex-Vitamin B12 tablet) zinc gluconate 50 mg tablet 50 mg PO BID 06/09/23 01/13/24 History apixaban 5 mg tablet 5 mg PO BID 30 days #60 tabs 12/10/23 01/13/24 Rx levothyroxine 50 mcg tablet 50 mcg PO DAILY #90 tabs 01/13/24 01/13/24 Rx lisinopril 20 mg tablet 20 mg PO DAILY #90 tabs 01/13/24 01/13/24 Rx metoprolol succinate 25 mg 25 mg PO DAILY #90 tabs 01/13/24 01/13/24 Rx tablet,extended release 24 hr Sleep Procedure The sleep study was completed using [employer] a technically adequate device with seven channels: peripheral arterial tone, actigraphy, body position, snore, respiratory movement, pulse oximetry, sleep staging, and heart rate. Prior to using the device, the patient received verbal and written instructions for its application and was provided with the help desk phone number for additional telephonic instruction with 24-hour availability of qualified personnel to answer questions.? The study was score
[2024-02-04 12:38] VITALS: BMI 24.3
== END 2024-01-26 07:30 | disposition home or self-care (01) ==
LOC: ANHCSM 08:29
PROVIDERS: PCP Family Medicine; Visit Provider Family Medicine
DX: G47.33 Obstructive sleep apnea (adult) (pediatric) (principal); I48.0 Paroxysmal atrial fibrillation; I10 Essential (primary) hypertension
CPT/HCPCS: 95800

== ENCOUNTER 2024-05-12 00:42 | Day surgery (SDC) | payer BC, SELFPAY ==
[2024-04-30 14:49] VITALS: BMI 23.0
--- NOTE | 2024-04-30 15:18 | PC.NURSE ---
Spoke with PATIENT regarding medications. Pt. verbalizes understanding that the last dose of Eliquis is to be taken on 05/08/2024 and the Endoscopist will instruct them when to restart after the procedure.
[2024-05-12 12:13] VITALS: BP 156/72; PULSE 56; RESP 17; TEMP 36.1; O2SAT 100; BMI 23.8
[2024-05-12] MEDS: LACTATED RINGERS 1,000 ML 150 ML IV CONT (12:24)
--- NOTE | 2024-05-12 12:58 | WPDANESEPPF ---
Anes - Initial Pre Proc Eval Procedure: Operation Date: 05/12/24 13:30 Proposed Procedures p Esophagogastroduodenoscopy - Juan Taveras MD Date/Time: 05/12/24 12:58 Surgeon: Juan Taveras MD Pre Op Diagnosis: Congenital diverticulum of esophagus, dysphagia Patient Data Age: 59 Gender: F Height: 1.78 m Weight: 75.4 kg Last Vital Signs Temp 97 F L 05/12/24 12:13 Pulse 56 L 05/12/24 12:13 Resp 17 05/12/24 12:13 BP 156/72 H 05/12/24 12:13 Pulse Ox 100 05/12/24 12:13 O2 Del Method Room Air 05/12/24 12:13 Allergies Allergy/AdvReac Type Severity Reaction Status Date / Time codeine AdvReac Intermediate feels Verified 05/12/24 12:12 jittery Home Medications Medication Instructions Recorded Confirmed Type cholecalciferol (vitamin D3) 50 2,000 unit PO DAILY 12/20/19 05/12/24 History mcg (2,000 unit) capsule loratadine 10 mg tablet (Claritin) 10 mg PO DAILY 01/03/21 05/12/24 History ascorbic acid (vitamin C) 500 mg 500 mg PO BID 06/09/23 05/12/24 History capsule omega-3 fatty acids 500 mg capsule 500 mg PO HS 06/09/23 05/12/24 History quercetin 500 mg capsule 500 mg PO DAILY 06/09/23 05/12/24 History zinc gluconate 50 mg tablet 50 mg PO BID 06/09/23 05/12/24 History levothyroxine 50 mcg tablet 50 mcg PO DAILY #90 tabs 01/13/24 05/12/24 Rx metoprolol succinate 25 mg 25 mg PO DAILY #90 tabs 01/13/24 05/12/24 Rx tablet,extended release 24 hr apap #1 ea 02/04/24 05/12/24 Rx fluticasone 250 mcg-salmeterol 50 See Rx Instructions .Route 03/04/24 05/12/24 Rx mcg/dose blistr powdr for .COMPLEX #180 ea inhalation (Wixela Inhub) apixaban 5 mg tablet 5 mg PO BID 30 days #60 tabs 03/25/24 05/12/24 Rx lisinopril 20 mg tablet 20 mg PO HS 04/30/24 05/12/24 History magnesium glycinate 400 mg PO HS 04/30/24 05/12/24 History mecobalamin (vitamin B12) 2,500 2,500 mcg PO HS 04/30/24 05/12/24 History mcg chewable tablet Patient hx anesthesia problems: none Family hx anesthesia problems: none Results Review: All pre-operative results and documents have been reviewed as part of the pre-operative evaluation. 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 Essential (primary) hypertension Hypothyroidism, unspecified Left hip pain Mixed hyperlipidemia Normal colonoscopy 3/ hx colon polyps/ repeat in 5 years Strain of left groin Thrombosed external hemorrhoid Umbilical hernia with obstruction Surgical History Surgical History History of hysterectomy Family History Family History Mother Hypertension Family history of atrial fibrillation, Onset Age: 71 Father Family history of malignant neoplasm of testis Other Family history of malignant melanoma Social History Social History (Updated 03/30/24 @ 16:06 by Aster Patel MA) Smoking status: Never smoker Alcohol intake: current Substance use: never Substance use type: does not use Do You Feel Safe in your Home?: Yes Lack of Transportation: No Lack of Food: Never True Current Housing: I Have Housing Concerned About Future Housing: No Difficulty Paying Gas/Electric Bills: No Difficulty Paying for Meds: No Currently Unemployed: No Education: Master's Degree or Higher Difficulty w/ Childcare or Family Care: No Living arrangements: with family Occupation/Education: occupation 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
--- NOTE | 2024-05-12 13:43 | PM.HPGS ---
History of Present Illness History of Present Illness Consent: Risks, benefits, and alternatives have been discussed and questions answered. Patient agrees to proceed with procedure. 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 Essential (primary) hypertension Hypothyroidism, unspecified Left hip pain Mixed hyperlipidemia Normal colonoscopy 3/ colon polyps/ repeat in 5 years Strain of left groin Thrombosed external hemorrhoid Umbilical hernia with obstruction Surgical History Surgical History History of hysterectomy Family History Family History Mother Hypertension Family history of atrial fibrillation, Onset Age: 71 Father Family history of malignant neoplasm of testis Other Family history of malignant melanoma Social History Social History (Updated 03/30/24 @ 16:06 by Aster Patel MA) Smoking status: Never smoker Alcohol intake: current Substance use: never Substance use type: does not use Do You Feel Safe in your Home?: Yes Lack of Transportation: No Lack of Food: Never True Current Housing: I Have Housing Concerned About Future Housing: No Difficulty Paying Gas/Electric Bills: No Difficulty Paying for Meds: No Currently Unemployed: No Education: Master's Degree or Higher Difficulty w/ Childcare or Family Care: No Living arrangements: with family Occupation/Education: occupation 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 Meds Home Medications and Allergies Home Medications Medication Instructions Recorded Confirmed Type cholecalciferol (vitamin D3) 50 2,000 unit PO DAILY 12/20/19 05/12/24 History mcg (2,000 unit) capsule loratadine 10 mg tablet (Claritin) 10 mg PO DAILY 01/03/21 05/12/24 History ascorbic acid (vitamin C) 500 mg 500 mg PO BID 06/09/23 05/12/24 History capsule omega-3 fatty acids 500 mg capsule 500 mg PO HS 06/09/23 05/12/24 History quercetin 500 mg capsule 500 mg PO DAILY 06/09/23 05/12/24 History zinc gluconate 50 mg tablet 50 mg PO BID 06/09/23 05/12/24 History levothyroxine 50 mcg tablet 50 mcg PO DAILY #90 tabs 01/13/24 05/12/24 Rx metoprolol succinate 25 mg 25 mg PO DAILY #90 tabs 01/13/24 05/12/24 Rx tablet,extended release 24 hr apap #1 ea 02/04/24 05/12/24 Rx fluticasone 250 mcg-salmeterol 50 See Rx Instructions .Route 03/04/24 05/12/24 Rx mcg/dose blistr powdr for .COMPLEX #180 ea inhalation ([employer] Inhub) apixaban 5 mg tablet 5 mg PO BID 30 days #60 tabs 03/25/24 05/12/24 Rx lisinopril 20 mg tablet 20 mg PO HS 04/30/24 05/12/24 History magnesium glycinate 400 mg PO HS 04/30/24 05/12/24 History mecobalamin (vitamin B12) 2,500 2,500 mcg PO HS 04/30/24 05/12/24 History mcg chewable tablet Allergies Allergy/AdvReac Type Severity Reaction Status Date / Time codeine AdvReac Intermediate feels Verified 05/12/24 12:12 jittery Vital Signs Vital Signs - 24 hr 05/12/24 12:13 Temperature 97 F L Pulse Rate 56 L Respiratory Rate 17 Blood Pressure 156/72 H Pulse Oximetry 100 Oxygen Delivery Room Air Exam Const: General: comfortable and no acute distress HENMT: Face/Nose/Sinus: Normal nares present Eyes: General: appearance normal, both eyes and all related structu
[2024-05-12] MEDS: BENZOCAINE (*SP) 60 ML SPRAY CAN (HURRICAINE) 1 SPRAY MUCOUS MEM (13:48)
[2024-05-12 13:53] VITALS: BP 122/76; PULSE 58; RESP 17; O2SAT 99
[2024-05-12 14:03] VITALS: BP 119/78; PULSE 60; RESP 17; O2SAT 100
[2024-05-12 14:13] VITALS: BP 113/71; PULSE 60; RESP 17; O2SAT 100
== END 2024-05-12 14:27 | disposition home or self-care (01) ==
PROVIDERS: PCP Family Medicine; Referring Provider Family Medicine; Visit Provider Internal Medicine Gastroenterology
PROC: 0DJ08ZZ Inspection of Upper Intestinal Tract, Via Natural or Artificial Opening Endoscopic (ICD-10-PCS; CPT 43235; principal; 2024-05-12 13:30)
DX: R93.3 Abnormal findings on diagnostic imaging of other parts of digestive tract (principal); I10 Essential (primary) hypertension; E78.2 Mixed hyperlipidemia; E03.9 Hypothyroidism, unspecified; J45.909 Unspecified asthma, uncomplicated; Z79.01 Long term (current) use of anticoagulants
CPT/HCPCS: 43235; J2704; J7120

== ENCOUNTER 2025-02-02 07:43 | Outpatient (CLI) | payer BC, SELFPAY ==
--- NOTE | ~2025-02-02 | NM_ITS ---
EXAMINATION: NM pete stress w perfusion DATE: 02/02/2025 10:37 INDICATION: Chest pain TECHNIQUE: Rest images were obtained following intravenous administration of 11.22 mCi Tc99m tetrofos min (Myoview). The patient was infused intravenously with Lexiscan (Regadenoson). Then, 34.5 mCi Tc99 m tetrofosmin (Myoview) was administered intravenously, and stress images were obtained. Data was rec onstructed into short axis and horizontal and vertical long axis SPECT images. Gated SPECT images wer e also obtained. COMPARISON: None. FINDINGS: There is no definite reversible or fixed perfusion abnormality to suggest ischemia or infar ction. There is normal left ventricular chamber size, wall motion and ejection fraction. Left ventr icular ejection fraction measures 68%. IMPRESSION: 1. Normal myocardial perfusion at rest and during stress. 2. Left ventricular ejection fraction measuring 68%. Reviewed, dictated and finalized at location A.
--- OUTSIDE RECORDS SUMMARY | 2025-02-02 07:47 | XMS_ITS | Encounter Summary ---
Author Organization [facility] Address [facility] [place] [address] Care Team Providers Care Overcaster Name Role Phone Shaina Fischer MD Primary Care Provider [phone] [phone] Encounter Details Date Type Department Care Team (Latest Contact Info) Description 02/01/2025 Travel Social History Tobacco Use Types Packs/Day Years Used Date Smoking Tobacco: Never Passive Smoke Exposure: Never Smokeless Tobacco: Never Alcohol Use Standard Drinks/Week Comments Not Currently 0 (1 standard drink = 0.6 oz pur e alcohol) Comments Unknown Sex and Gender Information Value Date Recorded Sex Assigned at Female 02/01/2025 12:38 PM CDT Legal 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 Gender Identity Not on file Sexual Orientation Not on file Occupation Industry Job Start Date Job End Date [employer] Not on file Not on file Not on file documented as of this encounter Plan of Treatment Upcoming Encounters Date Type Department Care Team (Late st Contact Info) Description 03/21/2025 2:15 PM CDT Office Visit [facility] [address] [place] [address] Ward Broderick MD [facility], [address] [place] [address] documented as of this encounter Visit Diagnoses Not on filedocumented in this encounter Care Teams Overcaster Relationship Specialty Start Date End Date Shaina Fischer MD [facility] [address] [phone] PCP - General FAMILY PRACTICE 09/16/24 documented as of this encounter
--- OUTSIDE RECORDS SUMMARY | 2025-02-02 07:47 | XMS_ITS | Clinical Summary ---
Author Organization [facility] Address [address] [place] [address] Care Team Providers Care Cold Roll Packer Sheet Iron Name Role Phone Shaina Fischer MD Primary Care Provider [phone] [phone] Allergies Active Allergy Reactions Criticality Noted Date Comments Codeine Other (see comment) Low 01/12/2024 Hypersensitivity, Irritable Medications WIXELA INHUB 250-50 MCG/ACT inhaler 1 puff 2 (two) times daily. 4 Active levothyroxine (SYNTHROID) 50 MCG tablet Take 1 tablet (50 mcg total) by mouth daily. 3 Active ELIQUIS 5 MG tablet Take 1 tablet (5 mg total) by mouth 2 (two) times daily. 180 tablet 2 4 Active metoprolol succinate ER (TOPROL-XL) 25 MG 24 hr tablet TAKE 1 TABLET (25 MG TOTAL) BY MOUTH DAILY. 90 tablet 1 5 Active lisinopril (PRINIVIL) 40 MG tablet Take 1 tablet (40 mg total) by mouth daily. 90 tablet 3 5 Active lisinopril (PRINIVIL) 20 MG tablet Take 1 tablet (20 mg total) by mouth daily. 4 01/14/20 Discontinued Active Problems Problem Noted Date Diagnosed Date Paroxysmal atrial fibrillation ([facility]) 01/12/2024 Atrial fibrillation by electrocardiogram ([facility]) 12/07/2023 Osteoarthritis 03/27/2023 Esophageal diverticulum 07/18/2016 Hypothyroidism 06/13/2016 Essential hypertension 04/06/2009 Encounters Date Type Department Care Team Description 02/01/2025 12:36 PM CDT Hospital Encounter [facility] [address] [facility] [place] [address] Piedad Mccormick ANP-BC Arrived 02/01/2025 [facility] [address] [place] [address] Piedad Mccormick ANP-BC Test Results 02/01/2025 Travel 01/28/2025 MyChart Message [facility] [address] [place], [place] [address] Ward Broderick MD BP history 01/13/2025 Telephone [facility] [address] Piedad Mccormick, ANP-BC Concerns from Last 3 Months Family History Medical History Relation Comments Hypertension Father Parkinson's Disease Father Atrial fibrillation Mother Hypertension Mother Relation Status Comments Father (Age 72) Mother Alive Social History Tobacco Use Types Packs/Day Years Used Date Smoking Tobacco: Never Passive Smoke Exposure: Never Smokeless Tobacco: Never Alcohol Use Standard Drinks/Week Comments Not Currently 0 (1 standard drink = 0.6 oz pur e alcohol) Comments Unknown Sex and Gender Information Value Date Recorded Sex Assigned at Female 02/01/2025 12:38 PM CDT Legal Sex Female 4:37 PM DIRECTOR LEARNING Gender Identity Not on file Sexual Orientation Not on file Occupation Industry Job Start Date Job End Date [employer]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 Not on file Not on file Not on file Last Filed Vital Signs Vital Sign Reading Time Taken Comments Blood Pressure 109/73 09/16/2024 11:36 AM DIRECTOR LEARNING Pulse 64 09/16/2024 11:36 AM DIRECTOR LEARNING Temperature - - Respiratory Rate - - Oxygen Saturation 99% 03/08/2024 2:49 PM CDT Inhaled Oxygen Concentration - - Weight 74.8 kg (165 lb) 09/16/2024 11:36 AM DIRECTOR LEARNING Height 177.8 cm (5' 10 ) 09/16/2024 11:36 AM DIRECTOR LEARNING Body Mass Index 23.68 09/16/2024 11:36 AM DIRECTOR LEARNING Plan of Treatment Upcoming Encounters Date Type Department Care Team (Late st Contact Info) Description 03/21/2025 2:15 PM CDT Office Visit [facility] [address] [place] [address] Ward Broderick MD [facility]., [address] [place] [address] Health Maintenance Due Date Last Done Comments Cervical Cancer Screening Pap Smear (Age 30 to 64) Every 3 Years 1964 Colorectal Cancer Screening Colonoscopy (10 Years) 1964 Annual Physical 1967 Hepatitis C 1982 DTaP, Tdap and Td Vaccines (1 - Tdap) 1983 Cervical Cancer Screening Pap with HPV Testing (Age 30 to 64) Every 5 Years 1994 Cervical Cancer Screening with HPV 1994 Zoster Vaccines (1 of 2) 2014 RSV Immunization or 60+ Years (1 - Risk 60-74 years 1-dose series) 2024 COVID-19 Vaccine (1 - season) 2024 Mammogram Screening 08/26/2026 08/26/2024, 07/28/2023, 07/18/2022, Additional history exists Meningococcal B Vaccine Aged Out No l onger eligible based on patient's age to complete this topic Meningococcal Vaccine Aged Out No zohra corina eligible based on patient's age to complete this topic Pneumococcal Vaccine: Pediatrics (0 to 5 Years) and At-Risk Patients (6 to 64 Years) Aged Out No longer eligible based on patient's age to complete this topic RSV Immunizations Under 20 Months Aged Out No longer eligible based on patient's age to complete this topic Procedures Procedure Name Priority Date/Time Associated Diagnosis Comments CT HEART SCREEN CALCIUM SCORE PROMO Routine 02/01/2025 12:54 PM CDT Primary hypertension from Last 3 Months Results * CT HEART SCREEN CALCIUM SCORE PROMO (02/01/2025 12:54 PM CDT) Anatomical Region Laterality Modality Chest Computed Tomogra phy 02/01/2025 1:49 PM CDT Impressions 02/01/2025 1:49 PM CDT =====IMPRESSION:===== Total Score: 0 No plaque, very low risk, very unlikely for probability of significant CAD Ordered By: PIEDAD MCCORMICK Interpreted By: Ben Gipson MD, 02/01/2025 1:49 PM Narrative 02/01/2025 1:49 [place] [address] EXAMINATION: Multislice Helical CT Coronary Calcium Scoring REASON FOR EXAM: Screening for heart disease COMPARISON: None TECHNIQUE: Multislice helical CT images of the proximal coronary arteries with a computer generated calcification score. A dose lowering technique was used for this procedure, which may include, but is not limited to, dose reduction technique, automated exposure control, iterative reconstruction, ALARA (As Low As Reasonably Achievable), or Image Gently techniques. Results: Left main: 0 LAD: 0 Circumflex: 0 Right coronary: 0 Total Score: 0 Comments: There is no mediastinal adenopathy, and there are no pulmonary nodules in the visualized portions of the chest. Calcium score guidelines: Total Score* Calcium Plaque [place] *Risk *Probability of significant CAD 0 No Plaque Very Low Very unlikely 1-10 Minimal Plaque Low Unlikely 11-100 Mild Plaque Moderate Low likelihood of significant stenosis <50% 101-400 Moderate Plaque Moderately High Moderate likelihood of significant stenosis (>50%) Over 400 Extensive Plaque High High likelihood of significant stenosis (>50%) The amount of coronary artery calcification correlates with the severity of coronary atherosclerosis and the probability of future significant event. Calcification is not site specific for stenosis and does not identify non-calcified atherosclerotic plaque, but rather indicates the extent of atherosclerosis in the coronary arteries overall. The score may be used as an indicator for risk factor modification or additional cardiac testing. Significant change in calcium score over time may be indicative of subsequent disease development or useful as a benchmark to assess preventative programs. Procedure Note Ben Gipson MD - 02/01/[address] [address] EXAMINATION: Multislice Helical CT Coronary Calcium Scoring REASON FOR EXAM: Screening for heart disease COMPARISON: None TECHNIQUE: Multislice helical CT images of the proximal coronary arterieswith a computer generated calcification score. A dose lowering techniquewas used for this procedure, which may include, but is not limited to,dose reduction technique, automated exposure control, iterativereconstruction, ALARA (As Low As Reasonably Achievable), or Image Gentlytechniques. Results: Left main: 0 LAD: 0 Circumflex: 0 Right coronary: 0 Total Score: 0 Comments: There is no mediastinal adenopathy, and there are no pulmonarynodules in the visualized portions of the chest. Calcium score guidelines: Total Score* Calcium Plaque [place] *Risk *Probability ofsignificant CAD 0 No Plaque Very LowVery unlikely 1-10 Minimal Plaque LowUnlikely 11-100 Mild Plaque ModerateLow likelihood of significant stenosis <50% 101-400 Moderate Plaque Moderately HighModerate likelihood of significant stenosis (>50%) Over 400 Extensive Plaque HighHigh likelihood of significant stenosis (>50%) The amount of coronary artery calcification correlates with the severityof coronary atherosclerosis and the probability of future significantevent. Calcification is not site specific for stenosis and does notidentify non-calcified atherosclerotic plaque, but rather indicates theextent of atherosclerosis in the coronary arteries overall. The score may be used as an indicator for risk factor modification oradditional cardiac testing. Significant change in calcium score over timemay be indicative of subsequent disease development or useful as abenchmark to assess preventative programs. =====IMPRESSION:===== Total Score: 0 No plaque, very low risk, very unlikely for probability ofsignificant CAD Ordered By: PIEDAD MCCORMICK Interpreted By: Ben Gipson MD, 02/01/2025 1:49 PM Piedad Mccormick ANP-BC CT Final Resu lt from Last 3 Months Insurance [facility] Care Teams Cold Roll Packer Sheet Iron Relationship Specialty Start Date End Date Shaina Fischer MD [address] [facility] [address] [place] [address] PCP - General FAMILY PRACTICE 09/16/24
--- OUTSIDE RECORDS SUMMARY | 2025-02-02 07:47 | XMS_ITS | Encounter Summary ---
Author Organization [facility] Address [facility] [place] [address] Care Team Providers Care Storage Garage Attendant Name Role Phone Guanaco Macias Primary Care Provider [phone] Shaina Fischer MD Primary Care Provider [phone] Encounter Details Date Type Department Care Team (Late st Contact Info) Description 12/25/2023 [facility], [address] [place], [place] [id number] Naveen Samano MA Social History Tobacco Use Types Packs/Day Years Used Date Smoking Tobacco: Never Assessed Comments Unknown Sex and Gender Information Value Date Recorded Sex Assigned at Female 02/01/2025 12:38 PM CDT Legal Sex Female 4:37 PM BRIM EDGE TRIMMER Gender Identity Not on file Sexual Orientation Not on file documented as of this encounter Plan of Treatment Upcoming Encounters Date Type Department Care Team (Late st Contact Info) Description 03/21/2025 2:15 PM CDT Office Visit [facility] [address] [place] [address] Ward Broderick MD [facility]., [address] [place] [address] documented as of this encounter Procedures Procedure Name Priority Date/Time Associated Diagnosis Comments COMPREHENSIVE METABOLIC PANEL Routine 12/12/2023 CBC, MANUAL DIFF Routine 12/12/2023 MAGNESIUM Routine 12/12/2023 THYROID STIM HORMONE TSH Routine 12/07/2023 MAGNESIUM Routine 12/07/2023 documented in this encounter Results * COMPREHENSIVE METABOLIC PANEL (12/12/2023) SODIUM S/P/B 138 GLUCOSE 113 mg/dL AST 37 BUN 15 CREATININE S/P/B 0.50 0.5 - 1.0 CALCIUM S/P/B 9.8 POTASSIUM S/P/B 4.2 CHLORIDE S/P/B 102 ALT 30 GFR ESTIMATE >60 us Default History Genericprovider LABORATORY Final Result * CBC, MANUAL DIFF (12/12/2023) WBC 5.5 HGB 13.9 HCT 43 PLT 312 us Default History Genericprovider LABORATORY Final Result * MAGNESIUM (12/12/2023) MAGNESIUM 2.3 us Default History Genericprovider LABORATORY Final Result * THYROID STIM HORMONE, TSH (12/07/2023) TSH 2.080 us Default History Genericprovider LABORATORY Final Result * MAGNESIUM (12/07/2023) MAGNESIUM 2.1[ us Default History Genericprovider LABORATORY Final Result documented in this encounter Visit Diagnoses Not on filedocumented in this encounter Care Teams Storage Garage Attendant Relationship Specialty Start Date End Date Guanaco Macias PA [address] [facility] [address] [place] [address] PCP - General PHYSICIAN SHIPYARD PAINTER HELPER 12/11/23 09/15/24 Shaina Fischer MD [facility] [address] [phone] PCP - General FAMILY PRACTICE 09/16/24 documented as of this encounter
--- OUTSIDE RECORDS SUMMARY | 2025-02-02 07:47 | XMS_ITS | Encounter Summary ---
Author Organization [facility] Address [facility] [place] [address] Care Team Providers Care Front Desk Supervisor Name Role Phone Shaina Fischer MD Primary Care Provider [phone] Reason for Referral * Imaging (Routine) - Closed Specialty Diagnoses / Procedures Referred By Contac t Referred To Contact RADIOLOGY Diagnoses Primary hypertension Procedures CT HEART SCREEN CALCIUM SCORE PROMO CT HEART DIAG CALCIUM SCORE CT HEART DIAG CALCIUM SCORE Piedad [place] [address] Phone: tel: fax: Referral ID Status Reason Start Date Expiration Date Visits Re quested Visits Authorized [id number] Closed 01/28/2025 01/28/2026 1 1 Reason for Visit * Imaging (Routine) - Closed Specialty Diagnoses / Procedures Referred By Contac t Referred To Contact RADIOLOGY Diagnoses Primary hypertension Procedures CT HEART SCREEN CALCIUM SCORE PROMO CT HEART DIAG CALCIUM SCORE CT HEART DIAG CALCIUM SCORE Piedad Mccormick ANP-BC [address] [address] Phone: tel: fax: Referral ID Status Reason Start Date Expiration Date Visits Re quested Visits Authorized [id number] Closed 01/28/2025 01/28/2026 1 1 Encounter Details Date Type Department Care Team (Late st Contact Info) Description 02/01/2025 12:36 PM CDT Hospital Encounter [facility] [address] [place] [address] Piedad Mccormick, ANP-BC [facility]. [address] [place] [address] Arrived Social History Tobacco Use Types Packs/Day Years Used Date Smoking Tobacco: Never Passive Smoke Exposure: Never Smokeless Tobacco: Never Alcohol Use Standard Drinks/Week Comments Not Currently 0 (1 standard drink = 0.6 oz pur e alcohol) Comments Unknown Sex and Gender Information Value Date Recorded Sex Assigned at Female 02/01/2025 12:38 PM CDT Legal Sex Female 4:37 PM CREATIVE WRITING PROFESSOR Gender Identity Not on file Sexual Orientation Not on file Occupation Industry Job Start Date Job End Date [employer] Not on file Not on file Not on file documented as of this encounter Plan of Treatment Upcoming Encounters Date Type Department Care Team (Late st Contact Info) Description 03/21/2025 2:15 PM CDT Office Visit [facility] [address] [place] [address] Ward Broderick MD [facility]., [address] [place] [address] documented as of this encounter Procedures Procedure Name Priority Date/Time Associated Diagnosis Comments CT HEART SCREEN CALCIUM SCORE PROMO Routine 02/01/2025 12:54 PM CDT Primary hypertension documented in this encounter Results * CT HEART SCREEN CALCIUM SCORE PROMO (02/01/2025 12:54 PM CDT) Anatomical Region Laterality Modality Chest Computed Tomogra phy 02/01/2025 1:49 PM CDT Impressions 02/01/2025 1:49 PM CDT =====IMPRESSION:===== Total Score: 0 No plaque, very low risk, very unlikely for probability of significant CAD Ordered By: PIEDAD MCCORMICK Interpreted By: Ben Gipson MD, 02/01/2025 1:49 PM Narrative 02/01/2025 1:49 PM CDT [address] [address] EXAMINATION: Multislice Helical CT Coronary Calcium Scoring [...] Calcium score guidelines: Total Score* Calcium Plaque [place] *Risk *Probability of significant CAD 0 No [...] Procedure Note Ben Gipson MD - 02/01/[address] [address] EXAMINATION: Multislice Helical CT Coronary Calcium Scoring [...] Calcium score guidelines: Total Score* Calcium Plaque [place] *Risk *Probability ofsignificant CAD 0 No Plaque [...] Gipson MD, 02/01/2025 1:49 PM Piedad Mccormick [facility]- CT Final Resu lt documented in this encounter Visit Diagnoses Diagnosis Primary hypertension Unspecified essential hypertension documented in this encounter Care Teams Front Desk Supervisor Relationship Specialty Start Date End Date Shaina Fischer MD [address] [facility] [address] [place] [address] PCP - General FAMILY PRACTICE 09/16/24 documented as of this encounter
--- OUTSIDE RECORDS SUMMARY | 2025-02-02 07:47 | XMS_ITS | Encounter Summary ---
Author Organization [facility] Address [facility] [place] [address] Care Team Providers Care Can Conveyor Feeder Name Role Phone Shaina Fischer MD Primary Care Provider [phone] Encounter Details Date Type Department Care Team (Late Contact Info) Description 01/28/2025 MyChart Message Enc [facility] [address] [place] [address] Ward Broderick MD [facility], [address] [place] [address] BP history Social History Tobacco Use Types Packs/Day Years Used Date Smoking Tobacco: Never Passive Smoke Exposure: Never Smokeless Tobacco: Never Alcohol Use Standard Drinks/Week Comments Not Currently 0 (1 standard drink = 0.6 oz pur e alcohol) Comments Unknown Sex and Gender Information Value Date Recorded Sex Assigned at Female 02/01/2025 12:38 PM CDT Legal Sex Female 4:37 PM AUTOMOTIVE REFINISHER Gender Identity Not on file Sexual Orientation Not on file Occupation Industry Job Start Date Job End Date [employer]IF [employer] 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 Not on file Not on file Not on file documented as of this encounter Plan of Treatment Upcoming Encounters Date Type Department Care Team (Late st Contact Info) Description 03/21/2025 2:15 PM CDT Office Visit [facility] [address] [place] [address] Ward Broderick MD [facility], [address] [place] [address] documented as of this encounter Visit Diagnoses Not on filedocumented in this encounter Care Teams Can Conveyor Feeder Relationship Specialty Start Date End Date Shaina Fischer MD [address] [facility] [address] [place], [place] [phone] PCP - General FAMILY PRACTICE 09/16/24 documented as of this encounter
--- OUTSIDE RECORDS SUMMARY | 2025-02-02 07:48 | XMS_ITS | Referral Summary ---
Author Organization [facility] Address [address] [place] [address] Care Team Providers Care Live In Housekeeper Name Role Phone Shaina Fischer MD Primary Care Provider + Allergies Active Allergy Reactions Criticality Noted Date Comments Codeine Other (See comments) Low 01/12/2024 Hypersensitivity, Irritable Medications Eliquis 5 mg tablet TAKE 1 TABLET BY MOUTH TWICE A DAY FOR 30 DAYS Active metoprolol XL (TOPROL-XL) 25 mg extended release tablet Take 1 tablet (25 mg total) by mouth daily 12/19/2023 Active levothyroxine (SYNTHROID) 50 mcg tablet Take 1 tablet (50 mcg total) by mouth daily Active Wixela Inhub 250-50 mcg/dose diskus inhaler 1 puff 2 (two) times a day 12/02/2023 Active lisinopriL (PRINIVIL,ZESTRI L) 10 mg tablet 04/04/2023 Act bubba valACYclovir (VALTREX) 1 gram tablet Take 1 tablet (1,000 mg total) by mouth 2 (two) times a day Active Active Problems Problem Noted Date Diagnosed Date Paroxysmal atrial fibrillation 01/12/2024 Essential hypertension 01/12/2024 Social History Tobacco Use Types Packs/Day Years Used Date Smoking Tobacco: Never Smokeless Tobacco: Never Tobacco Cessation:Counseling Given: Not Answered AUDIT-C Answer Date Recorded Q1: How often do you have a drink containing alc ohol? Monthly or less 08/03/2024 Q2: How many drinks containi ng alcohol do you have on a typical day when you are drinking? 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 Gender Identity Not on file Sexual Orientation Not on file Last Filed Vital Signs Vital Sign Reading Time Taken Comments Blood Pressure 130/82 08/03/2024 3:41 PM CDT Pulse 72 01/12/2024 8:47 AM CDT Temperature - - Respiratory Rate - - Oxygen Saturation 99% 01/12/2024 8:47 AM CDT Inhaled Oxygen Concentration - - Weight 78.1 kg (172 lb 1.6 oz) 08/03/2024 3:41 P M CDT Height 177.8 cm (5' 10 ) 08/03/2024 3:41 PM CDT Body Mass Index 24.69 08/03/2024 3:41 PM CDT Plan of Treatment Not on file Procedures Procedure Name Priority Date/Time Associated Diagnosis Comments SCREENING MAMMOGRAM BILATERAL W FINN Schedule Routine, Read Routine (OP Routine) 08/26/2024 3:34 PM CDT Screening mammogram, encounter for from Last 3 Months or Most Recently Relevant to Health Maintenance Results * Screening Mammogram Bilateral W Finn (08/26/2024 3:34 PM CDT) Anatomical Region Laterality Modality Breast Bilateral Mammography Narrative 08/26/2024 5:16 PM CDT Examination: Screening Mammogram Bilateral W Finn: 08/26/24 Clinical: Screening mammogram, encounter for. Prior Study Comparisons: Comparison was made to the prior available relevant studies at the time of interpretation. Findings: Screening Mammogram Bilateral W Finn Bilateral No significant masses, malignant type calcifications, skin thickening, nipple retraction, or significant lymphadenopathy is noted in either breast. Computer Aided Detection was utilized for the interpretation of this study. The breasts are heterogeneously dense, which may obscure small masses. The patient will be notified of results by letter. Impression: BI-RADS ATLAS category (overall): 2 - Benign There is no mammographic evidence of malignancy. Routine Screening Mammogram in 1 Yr is recommended for bilateral Overall Assessment: 2 - Benign us Self Screening Mammogram IMG MAMMO PROCEDURES Fi nal Result from Last 3 Months or Most Recently Relevant to Health Maintenance Insurance [facility] Care Teams Live In Housekeeper Relationship Specialty Start Date End Date Shaina Fischer MD PCP - General 11/28/08
--- OUTSIDE RECORDS SUMMARY | 2025-02-02 07:48 | XMS_ITS | Encounter Summary ---
Author Organization [facility] Address [facility] [place] [address] Care Team Providers Care Commissioning Editor Name Role Phone Shaina Fischer MD Primary Care Provider [phone] Encounter Details Date Type Department Care Team (Late Contact Info) Description 02/01/2025 MyCLeanKitt Message Enc [facility], [address] [place], [place] [id number] Piedad Maynard, ANP-BC [facility]. 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, [address] [place] [address] documented as of this encounter Visit Diagnoses Not on filedocumented in this encounter Care Teams Commissioning Editor Relationship Specialty Start Date End Date Shaina Fischer MD [address] [facility] [address] [place] [address] PCP - General FAMILY PRACTICE 09/16/24 documented as of this encounter
--- OUTSIDE RECORDS SUMMARY | 2025-02-02 07:48 | XMS_ITS | Clinical Summary ---
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 Name Role Phone Shaina Fischer MD Primary [...] Paroxysmal atrial fibrillation 01/12/2024 Essential hypertension 01/12/2024 Surgical History Surgery Date Site/Laterality Comments HYSTERECTOMY Medical History Medical History Date Comments Hypertension Family History Medical History Relation Name Comments Cancer Father Hypertension Father Family history of hypertension - (Added by TW Conv) testicular cancer Father Family his tory of malignant neoplasm of testis - (Added by TW Conv) Hypertension Mother Uterine cancer Mother Stomach cancer Paternal Grandmother Famil y history of malignant neoplasm of stomach - (Added by TW Conv) Relation Name Status Comments Father Mother Paternal Grandmother Social History Tobacco Use Types Packs/Day Years [...] on file 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 Gender Identity Not on file Sexual Orientation Not on file Obstetrics History Last Filed Vital Signs Vital Sign Reading [...] 08/03/2024 3:41 PM CDT Plan of Treatment Health Maintenance Due Date Last Done Comments Colon Cancer Screening-Colonoscopy 1965 Depression Screening 1965 Hepatitis C Screening 1965 DTaP/Tdap/Td Vaccine (1 - Tdap) 1975 Hepatitis B Screening 1982 Zoster Vaccine (1 of 2) 2014 Influenza Vaccine (Season Ended) 2025 07/15/2019, 11/03/2014 Regular Well Visit/Exam 18-64 08/03/2025 08/03/2024 Breast Cancer Screening-Mammogram 08/26/2025 08/26/2024, 07/28/2023, 07/18/2022, Additional history exists Pneumococcal vaccine <65 Aged Out No longer eligible based on [...] Most Recently Relevant to Health Maintenance Insurance [employer] ACCESS Member Subscriber Plan / Payer (Ef fective 2019-Present) Name:Sally Bellamy Relation to Subscriber:Spouse Name:BRE BELLAMY Subscriber ID:Not on file Date of :1955 Payer ID:[id number] (NAIC) Group ID:[id number] Type: [employer] Address: [facility] [id number] [place] [id number] [facility] [employer] [facility] [employer] [facility] [employer] Care Teams Net Developer Architect Relationship Specialty Start Date End Date Shaina Fischer MD PCP - General 11/28/08
--- NOTE | 2025-02-02 08:35 | EST_ITS ---
Patient Info Name: Sally Bellamy Age: 59 years : 1965 Gender: Female Ht: 70 in Wt: 170 lbs BSA: 1.96 m2 HR: 67 bpm BP: 143 / 82 mmHg Exam Date: 02/02/2025 8:56 AM Exam Location: Echo Lab Patient Status: Outpatient Admit Date: 02/02/2025 Staff Ordering Physician: Shaina Fischer MD Attending Provider: Shaina Fischer MD Exercise Technologist: miguel blackwell Exercise Physician: Jong Garcia DO Exam Type: CA stress pete w NM Study Info Indications I48.0 - Paroxysmal atrial fibrillation R07.89 - Other chest pain A regadenoson stress test was performed. Summary 1. 1. Negative lexiscan stress test for ischemic ST changes by ECG criteria. 2. 2. Stable hemodynamics throughout the test. 3. 3. Nuclear scan to follow and will be reported separately. Please correlate with it. 4. 4. Patient informed of the above results. Protocol: Lexiscan Stress ECG Details Stage: REST Duration (min): 1 min : 33 sec HR (bpm): 66 SBP (mmHg): 143 DBP (mmHg): 82 Stage: REST Duration (min): 6 min : 36 sec HR (bpm): 75 SBP (mmHg): 143 DBP (mmHg): 82 Stage: STAGE 1 Duration (min): 1 min : 0 sec HR (bpm): 111 SBP (mmHg): 148 DBP (mmHg): 65 Stage: RECOVERY Duration (min): 1 min : 0 sec HR (bpm): 108 SBP (mmHg): 148 DBP (mmHg): 65 Stage: RECOVERY Duration (min): 2 min : 0 sec HR (bpm): 99 SBP (mmHg): 148 DBP (mmHg): 65 Stage: RECOVERY Duration (min): 3 min : 0 sec HR (bpm): 93 SBP (mmHg): 143 DBP (mmHg): 69 Stage: RECOVERY Duration (min): 3 min : 22 sec HR (bpm): 97 SBP (mmHg): 143 DBP (mmHg): 69 Rest HR: 75 bpm Peak HR: 113 bpm Rest Sys BP: 143 mmHg Peak Sys BP: 148 mmHg Max Pred HR: 160 bpm % Max Pred HR: 71 % Target HR: 136 bpm Max RPP: 16,724 bpm*mmHg Termination Reason: Completed protocol Cardiac Symptoms: Shortness of breath, Dizziness Total Time: 1 min : 0 sec Rest Carrasco BP: 82 mmHg Peak Carrasco BP: 65 mmHg Total Dose: 0.4 mg Resting ECG Sinus rhythm. Stress ECG No ST changes. Arrhythmias None. Report Signatures
== END 2025-02-02 07:44 | disposition home or self-care (01) ==
PROVIDERS: PCP Family Medicine; Visit Provider Family Medicine
DX: R07.89 Other chest pain (principal); I48.0 Paroxysmal atrial fibrillation
CPT/HCPCS: 78452; 93017; A9502; J2785

== ENCOUNTER 2025-04-25 08:29 | Outpatient (CLI) | payer BC, SELFPAY ==
--- NOTE | ~2025-04-25 | XR_ITS ---
EXAM/ PROCEDURE: XR hand RT min 3V - 04/25/2025 9:10 CDT HISTORY: 59 years old Female with M79.641 - Pain in right hand COMPARISON: None available TECHNIQUE: Three view(s) FINDINGS/ IMPRESSION: There are no fractures or dislocations.Joint space narrowing, subchondral sclerosis, subchondral cyst formation and osteophyte formation, compatible with moderate osteoarthritis. Reviewed, dictated and finalized at location A.
--- NOTE | ~2025-04-25 | MR_ITS ---
EXAMINATION: MR hip LT wo con DATE: 04/25/2025 09:12 INDICATION: Left hip stiffness TECHNIQUE: Magnetic resonance imaging (MRI) of the left hip was performed without intravenous contra st. Sequences included full-field axial PD-weighted FS FSE and T1-weighted FSE, coronal of the pelvis with PD-weighted FS FSE, T2-weighted FSE and T1-weighted FSE, small field of view of the left hip w ith axial PD-weighted FS FSE, sagittal PD-weighted FS FSE, coronal PD-weighted FS FSE and coronal T2 weighted FSE. Additional radial T1-weighted FGR oriented orthogonal to the acetabular rim were obtai cody for evaluation of the labrum. COMPARISON: Radiographs dated 05/26/2023 FINDINGS: Bones/labrum/cartilage: Alignment is normal. No fracture, avascular necrosis or pathologic marrow replacing process. There i s a tear at the base of the posterior to posterior superior left acetabular labrum. Small partial-thi ckness tear at the anterosuperior labrum and degeneration of the small anterior labrum. Similar patte rn of labral tear and degeneration suggested but not diagnostically evaluated at the contralateral ri ght acetabular labrum on the larger [id number] images. Also relatively symmetric mild to moderate osteoarthritis of both hips with posterior inferior predominant nonuniform joint space narrowing. Fluid: Asymmetric small left hip joint effusion. Physiologic amount fluid in the right hip joint. Mild incre ased fluid signal overlying the bilateral greater trochanters consistent with trochanteric bursitis. Soft tissues: Normal and symmetric muscle bulk and signal in the pelvis and visualized proximal thighs. The iliopso as, gluteal and proximal hamstring tendons are normal. The uterus is not identified and has likely be en surgically resected. Limited evaluation of visceral organs of the pelvis is otherwise unremarkabl e. No pathologically enlarged pelvic/inguinal lymphadenopathy. IMPRESSION: 1. Mild to moderate osteoarthritis at the left hip with associated labral tear/degeneration and nonsp ecific small left hip joint effusion. 2. Similar findings with the exception of no joint effusion at the contralateral right hip. 3. Symmetric mild bilateral trochanteric bursitis. Reviewed, dictated and finalized at location A. IMPRESSION: 1. Mild to moderate osteoarthritis at the left hip with associated labral tear/ degeneration and nonspecific small left hip joint effusion. 2. Similar findings with the exception of no joint effusion at the contralatera l right hip. 3. Symmetric mild bilateral trochanteric bursitis.
--- NOTE | ~2025-04-25 | XR_ITS ---
EXAM/ PROCEDURE: XR hand LT min 3V - 04/25/2025 9:10 CDT HISTORY: 59 years old Female with M79.641 - Pain in right hand COMPARISON: None available TECHNIQUE: Three view(s) FINDINGS/ IMPRESSION: There are no fractures or dislocations.Joint space narrowing, subchondral sclerosis, subchondral cyst formation and osteophyte formation, compatible with mild to moderate osteoarthritis. Reviewed, dictated and finalized at location A.
== END 2025-04-25 08:30 | disposition home or self-care (01) ==
PROVIDERS: PCP Physician Assistant Surgical; Visit Provider Family Medicine
DX: M16.12 Unilateral primary osteoarthritis, left hip (principal); S73.102A Unspecified sprain of left hip, initial encounter; X58.XXXA Exposure to other specified factors, initial encounter; M25.452 Effusion, left hip; M70.62 Trochanteric bursitis, left hip; M70.61 Trochanteric bursitis, right hip; M79.641 Pain in right hand; M79.642 Pain in left hand
CPT/HCPCS: 73130; 73721

== ENCOUNTER 2025-04-28 16:46 | Outpatient (CLI) | payer BC, SELFPAY ==
[2025-04-28 17:17] LABS: Kit Draw Collected
== END 2025-04-28 16:47 | disposition home or self-care (01) ==
PROVIDERS: PCP Family Medicine; Visit Provider Chiropractor
DX: M04.9 Autoinflammatory syndrome, unspecified (principal); E06.3 Autoimmune thyroiditis
CPT/HCPCS: 36415

== ENCOUNTER 2025-10-20 12:30 | Outpatient (RCR) | payer BC, SELFPAY ==
--- NOTE | 2025-09-08 14:21 | OPREHPOC ---
Outpatient Therapy Plan of Care This is a Multidisciplinary Plan of Care that may contain components documented by all disciplines (PT, OT, and ST.) PT Problem 1 PT Problem #1 Knowledge Deficit PT Goal 1 Goal / Goal Update 1. Patient to demonstrate independence with HEP for improved self-reliance of symptom management. Target Visit 8 PT Problem 2 PT Problem #2 Pain PT Goal 1 Goal / Goal Update 1. Patient to decrease subjective reports of pain to <4/10 for improved ADL tolerance. 2. Patient to report improved standing and walking tolerance for increased ADL and IADL endurance. 3. Pt will increase LEFS score by at least 9 points in order to demonstrate the minimal clinically important difference (MCID) in functional improvement. Target Visit 8 PT Problem 3 PT Problem #3 Impaired Range of Motion PT Goal 1 Goal / Goal Update 1. Pt to display improvements in L hip rotational ROM to prepare for L HAYLEE. Target Visit 8 PT Problem 4 PT Problem #4 Impaired Strength PT Goal 1 Goal / Goal Update 1. Patient will demonstrate improved strength of the bilateral hip abductors and extensors to 4+/5 on manual muscle testing in order to improve gait stability and stair negotiation.
--- NOTE | 2025-09-08 14:22 | PTOPPROG ---
Assessment and note entered by Ricardo Mcgowan PT Evaluation Information Assessment Status Evaluation Diagnosis ANDREAS hip pain ICD-10 Condition Codes (PT) Pain in right hip M25.551,Pain in left hip M25.552 Onset gradual / progressive Subjective Information Primary Complaint: ANDREAS hip Pain (L > R) Pt states she is scheduled for L HAYLEE [address] Croft. Pt states she enjoyed to run and exercise but is currently unable too. She reports the hip pain has progressively gotten worse and now limits her with all activities even simple tasks like taking on and off the shoes. 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 Her R hip is more tender on the outside of her hip and sensitive to the touch. Assessment PT Clinical Summary Patient presents to physical therapy with a primary issue of ANDREAS hip pain for several years that has progressed. Pt is now scheduled for L HAYLEE in November. Patient demonstrates signs consistent with L hip advanced OA and R sided lateral hip pathology such as bursitis,. Patient will benefit from skilled physical therapy to address the above listed deficits and return to prior level of function. Home exercise program instructed and written handout provided, exercises tolerated well with no adverse effects to note post-session. Patient was educated on importance of adherence to home exercise program. Patient was also educated on anatomy, prognosis, home modalities, and plan of care. Plan of Care Interventions Electrical Stimulation,Gait Training,Hot Pack/Cold Pack,Manual Therapy,Neuro Re-education, Therapeutic Activities,Therapeutic Exercise,Other PT Services Indicated Yes Treatment Frequency and 1x week 8 visits Duration These treatments will address the objective and functional deficits as defined above. The patient will be advanced safely and appropriately in order for the patient to progress towards his/her prior level of function. Additional exercises will be introduced and as well as a comprehensive home exercise program upon discharge, if needed, ?to ensure carryover of functional gains achieved in the clinic. This treatment plan has been reviewed and agreement upon by the patient.
--- NOTE | 2025-10-20 13:21 | PTOPDC ---
Assessment and note entered by Ricardo Mcgowan, PT Evaluation Information Assessment Status Discharge Diagnosis ANDREAS hip pain ICD-10 Condition Codes (PT) Pain in right hip M25.551,Pain in left hip M25.552 Onset gradual / progressive Subjective Information Pt states she feels like she has gained some ROM in her hips but still has deep groin pain with certain movements. She states she has her HAYLEE on Nov 04 and will do PT for following the surgery. Reported Pain Level Pain Score 3: Self Report Assessment PT Clinical Summary Pt has made objective improvements in ROM and strength for pre-operative therapy for HAYLEE. Pt to be discharged from physical therapy and be re- evaluated following surgery. Plan of Care PT Services Indicated No
== END 2025-10-21 14:28 | disposition home or self-care (01) ==
LOC: ANHGOSHPT 12:30
PROVIDERS: PCP Family Medicine; Visit Provider Family Medicine
DX: M25.552 Pain in left hip (principal)
CPT/HCPCS: 97110; 97112; 97140; 97161; 97530